=== PATIENT | female | born 1955 | race Caucasian/White ===

== ENCOUNTER 2016-06-18 15:26 | Outpatient (RCR) | payer BC ==
--- OUTSIDE RECORDS SUMMARY | 2016-05-22 15:28 | XMS REPORT | Continuity of Care Document ---
Author Author [facility] Organization [facility] Address Unknown Phone Unavailable Care Team Providers Care Road Engineer Name Role Phone Jack Liao PCP [phone] Source Comments Some departments are not documenting in the electronic medical record. If you do not see the information that you expected, contact Release of Information in the Health Information Management department at [phone] for further assistance in locating additional records.[facility] Active Allergies and Adverse Reactions Allergen Noted Date Severity Reactions Comments Grass Pollen 07/15/2012 UNKNOWN Molds Extract 07/20/2012 UNKNOWN Penicillins 07/15/2012 RASH Pollen 07/15/2012 UNKNOWN Sucralfate 07/15/2012 HIVES Sulfa (Sulfonamide 07/15/2012 UNKNOWN Antibiotics) Current Medications Prescription Sig. Disp. Refills Start End Date Status Date omeprazole DR(+) Take 20 mg by mouth Active (PRILOSEC) 20 mg capsule daily. cholecalciferol (Vitamin Take 1,000 Units by mouth Active D3) (VITAMIN D-3) 1,000 daily. units tablet topiramate (TOPAMAX) 50 Take 50 mg by mouth twice Active mg tablet daily. sertraline (ZOLOFT) 100 Take 100 mg by mouth Active mg tablet daily. fexofenadine(+) (SEAN) Take 180 mg by mouth Active 180 mg tablet daily. spironolactone Take 25 mg by mouth Active (ALDACTONE) 25 mg tablet daily. cyanocobalamin (VITAMIN Take 1,000 mcg by mouth Active B-12) 1,000 mcg tablet daily. fluticasone (FLONASE) 50 Apply 2 Sprays to each Active mcg/actuation nasal spray nostril as directed daily. Calcium Carbonate-Vit Take 1 Tab by mouth Active D3-Min (CALCIUM-VITAMIN daily. D) 600 mg calcium- 400 unit Tab amitriptyline (ELAVIL) 10 Take 10 mg by mouth at Active mg tablet bedtime daily. budesonide/formoterol Inhale 2 Puffs by mouth 3 Inhaler 1 03/17/20 Active (SYMBICORT) 160/4.5 mcg twice daily. 13 HFAA inhalation VENTOLIN HFA 90 INHALE 2 PUFFS BY MOUTH 18 g 2 11/29/19 Active mcg/actuation inhaler EVERY 6 HOURS NEEDED 14 FOR WHEEZING montelukast (SINGULAIR) TAKE ONE TABLET BY MOUTH 30 Tab 3 03/26/20 Active 10 mg tablet EVERY NIGHT AT BEDTIME 14 Active Problems Not on file Immunizations Name Dates Previously Given Next Due Flu Vaccine Trivalent=>3 05/10/2013 Yo (Preservative Free) Social History Tobacco Use Types Packs/Day Years Used Date Never Smoker Smokeless Tobacco: Never Used Alcohol Use Drinks/Week oz/Week Comments Yes a few times a year Last Filed Vital Signs Vital Sign Reading Time Taken Blood Pressure 121/79 05/10/2013 10:05 AM CDT Pulse 83 05/10/2013 10:05 AM CDT Temperature 36.7 C (98.1 F) 05/10/2013 10:05 AM CDT Respiratory Rate 24 05/10/2013 10:05 AM CDT Height 1.575 m (5' 2") 05/10/2013 10:05 AM CDT Weight 77.565 kg (171 lb) 05/10/2013 10:05 AM CDT Body Mass Index 31.27 05/10/2013 10:05 AM CDT Oxygen Saturation 98% 05/10/2013 10:05 AM CDT Plan of Care Health Maintenance Due Date Last Done Comments Physical (Comprehensive) 1960 Exam Pertussis Vaccine 1964 Tetanus Vaccine 1970 Cervical Cancer Screening 1974 Breast Cancer Screening 1993 Colorectal Cancer 10/26/2003 Screening Shingles Vaccine 2013 Influenza Vaccine 03/12/2016 05/10/2013 Results from Last 3 Months Not on file
[~2016-06-18 15:26] MED LIST: BSP10T PO; BSP5T PO; BUDE6HFA IH; CIPR-17 PO; FEXO180T PO; FEXO30TA17 PO; FLT05NA16 NSEACH; HYDR-3583 PO; IPR14IN INH; LEVO750T6 PO; METR500T PO; MNTL10T PO; SPRN25T PO; SRTR100T PO; TPR25T PO
== END 2016-08-13 14:55 | disposition home or self-care (01) ==
PROVIDERS: ATTEND Orthopaedic Surgery Orthopaedic Surgery of the Spine
DX: M48.06 Spinal stenosis, lumbar region (principal)

== ENCOUNTER → 2016-12-21 | Outpatient (CLI) | payer BC ==
--- NOTE | 2016-12-21 11:27 | Diagnostic Imaging Report ---
PROCEDURE: US Thyroid. TECHNIQUE: Multiple real-time grayscale images were obtained of the thyroid in various projections. INDICATION: Disorder of thyroid gland, family history of thyroid cancer. COMPARISON: None. DISCUSSION: The thyroid gland is normal in echotexture and size. The right thyroid measures 4.1 x 1.3 x 1.5 cm. The left thyroid measures 3.9 x 1.6 x 1.6 cm. 4 mm cyst within the left thyroid gland is benign. No solid nodule identified. No abnormal adjacent lymph nodes identified. IMPRESSION: 1. Unremarkable sonographic appearance of the thyroid gland. Dictated by: Dictated on workstation # [id number]
== END | disposition home or self-care (01) ==
LOC: RAD 10:45
PROVIDERS: ATTEND Family Medicine
DX: E07.9 Disorder of thyroid, unspecified (principal)
CPT/HCPCS: 76536

== ENCOUNTER → 2017-09-09 | Outpatient (CLI) | payer BC ==
[~2017-09-09] MED LIST changes: +CATHETER FLUSH 10 ML SYR IV PRN; +IOHEXOL 350 MG/ML 100 ML (OMNIPAQUE 350) VIAL IV ONE; +NS 250 ML (IVPB) BAG IV ONE; +RECEIVED CONTRAST (Hold Metformin) IV SCH
[2017-09-09 16:30] LABS: BUN/CREATININE RATIO 21; CREATININE SERUM 0.92 MG/DL (0.60-1.30); GFR ESTIMATED > 60
--- NOTE | 2017-09-09 17:25 | Diagnostic Imaging Report ---
PROCEDURE: CT abdomen and pelvis with contrast. TECHNIQUE: Multiple contiguous axial images were obtained through the abdomen and pelvis after administration of intravenous contrast. INDICATION: Lower abdominal pain and pressure for one week with nausea and vomiting; history of spinal surgery, partial hysterectomy, cholecystectomy, and appendectomy. CONTRAST: 100 mL of Omnipaque 350 was administered. COMPARISON STUDY: CT of the abdomen and pelvis from 2012. FINDINGS: There is a minimal hiatal hernia. The lung bases are clear. There has been slight increase of a left splenic cyst. This appears benign. The gallbladder is absent. No ductal dilatation is seen. The liver is normal. The pancreas, adrenal glands, and kidneys are normal. The appendix and uterus are absent. The urinary bladder is normal. The bowel loops appear normal. No hernias are present. Interval postoperative changes are present in the spine. No osseous metastases are present. IMPRESSION: There are no acute findings. Dictated by: Dictated on workstation # [id number]
== END ==
LOC: RAD 15:58
PROVIDERS: ATTEND Nurse Practitioner Family
DX: R10.30 Lower abdominal pain, unspecified (principal); R11.2 Nausea with vomiting, unspecified; Z90.49 Acquired absence of other specified parts of digestive tract; Z90.710 Acquired absence of both cervix and uterus; Z98.890 Other specified postprocedural states
CPT/HCPCS: 36415; 74177; 82565; 84520

== ENCOUNTER → 2018-08-17 | Outpatient (CLI) | payer BC ==
[~2018-08-17] MED LIST changes: -CATHETER FLUSH 10 ML SYR IV PRN; -IOHEXOL 350 MG/ML 100 ML (OMNIPAQUE 350) VIAL IV ONE; -NS 250 ML (IVPB) BAG IV ONE; -RECEIVED CONTRAST (Hold Metformin) IV SCH
--- NOTE | 2018-08-17 16:50 | Diagnostic Imaging Report ---
INDICATION: Right-sided pain. TIME OF EXAM: 04:34 p.m. Correlation is made with prior chest radiograph from 06/19/2013. FINDINGS: The heart size is stable. Calcified nodule in right middle lobe is again noted. Lungs are clear. No infiltrates are seen. No effusion or pneumothorax is identified. Postsurgical changes in the lower cervical spine are seen. Visualized ribs appear to be intact. IMPRESSION: Stable chest. No acute feature is detected. Dictated by: Dictated on workstation # [id number]
== END ==
LOC: RAD 16:23
PROVIDERS: ATTEND Nurse Practitioner Family
DX: R06.00 Dyspnea, unspecified (principal); R07.89 Other chest pain
CPT/HCPCS: 71046

== ENCOUNTER → 2019-09-08 | Outpatient (CLI) | payer BC ==
--- NOTE | 2019-09-08 16:10 | Diagnostic Imaging Report ---
INDICATION: Chronic cough. TIME OF EXAM: 03:53 p.m. Correlation is made with prior chest from 08/17/2018. FINDINGS: Heart size is stable. Calcified granuloma in the right base is unchanged. No infiltrates are seen. There is no effusion or pneumothorax. Postop changes in the lower cervical spine are noted. IMPRESSION: Stable chest. No acute feature is detected. Dictated on workstation # [id number]
--- NOTE | 2019-09-08 16:34 | Diagnostic Imaging Report ---
CLINICAL INDICATION: Patient with sinusitis and cough. Patient has past surgical history of deviated septum. EXAM: Axial CT scan of the maxillofacial structures without IV contrast. Coronal and sagittal reformations were performed. Auto Exposure Controls were utilized during the CT exam to meet ALARA standards for radiation dose reduction. COMPARISON: CT scan of the sinuses without contrast dated 10/11/2009. FINDINGS: PARANASAL SINUSES: FRONTAL: Unremarkable. ETHMOID: There is mild ethmoid sinus mucosal thickening. MAXILLARY: Unremarkable. SPHENOID: Unremarkable. OTHER PARANASAL SINUS FINDINGS: There are postop changes to the paranasal sinuses with bilateral medial maxillary antrostomies, bilateral middle turbinectomies, and bilateral ethmoidectomies. NASAL SEPTUM: Stable mild leftward nasal septal deviation. VISUALIZED TEMPORAL BONE STRUCTURES: Unremarkable. BONY STRUCTURES: Unremarkable. EXTRACRANIAL SOFT TISSUE/ ORBITS: Unremarkable. IMPRESSION: 1: There is mild ethmoid sinus mucosal thickening which has not significantly changed. 2: Stable postop changes to the paranasal sinuses. 3: Stable leftward nasal septal deviation. Dictated by: Dictated on workstation # [id number]
== END ==
LOC: RAD 15:20
PROVIDERS: ATTEND Otolaryngology Otolaryngology/Facial Plastic Surgery
DX: J32.9 Chronic sinusitis, unspecified (principal); R05 Cough; J34.2 Deviated nasal septum
CPT/HCPCS: 70486; 71046

== ENCOUNTER → 2021-02-10 | Outpatient (CLI) | payer MEDICARE, OTHER ==
--- NOTE | 2021-02-10 16:39 | Diagnostic Imaging Report ---
INDICATION: Fall with left wrist pain. TIME OF EXAM: 2:54 PM Wrist is encased in a plaster splint obscuring bone detail. There is a fracture of the distal radius with intra-articular extension to the radiocarpal joint. The ulna appears to be intact. Carpus and metacarpals are intact IMPRESSION: Intra-articular distal radius fracture. Dictated by: Dictated on workstation # [id number]
--- NOTE | 2021-02-10 16:40 | Diagnostic Imaging Report ---
INDICATION: Fall with right elbow pain. TIME OF EXAM: 2:59 PM Three views of the right elbow were obtained. There appears to be a fracture of the neck of the radius. There is a large elbow joint effusion with prominent anterior fat-pad. No other fractures are seen. IMPRESSION: Neck of radius fracture. Dictated by: Dictated on workstation # [id number]
== END ==
LOC: RAD FS 14:39
PROVIDERS: ATTEND Nurse Practitioner
DX: S52.131A Displaced fracture of neck of right radius, initial encounter for closed fracture (principal); S50.01XA Contusion of right elbow, initial encounter; W19.XXXA Unspecified fall, initial encounter
CPT/HCPCS: 73080; 73110

== ENCOUNTER 2021-04-29 08:13 | Outpatient (RCR) | payer MEDICARE, OTHER | END 2021-04-29 17:00 | disposition home or self-care (01) | PROVIDERS: ATTEND Orthopaedic Surgery | DX: S52.542D Smith's fracture of left radius, subsequent encounter for closed fracture with routine healing (principal); S52.134D Nondisplaced fracture of neck of right radius, subsequent encounter for closed fracture with routine healing; W19.XXXD Unspecified fall, subsequent encounter ==

== ENCOUNTER → 2021-10-10 | Outpatient (CLI) | payer MEDICARE, OTHER ==
--- NOTE | 2021-10-10 14:43 | Diagnostic Imaging Report ---
PROCEDURE: MR imaging of the brain without contrast. TECHNIQUE: Multiplanar, multisequence MR imaging of the brain was performed without contrast. INDICATION: Headaches and dizziness as well as blurred vision. COMPARISON: No prior studies are available for comparison. The ventricles and sulci are within normal limits. No sulcal effacement or midline shift is identified. There is no diffusion restriction. Normal expected flow-voids within the carotid siphons are seen. No acute intra-axial or extra-axial hemorrhage is detected. Corpus callosum is unremarkable. The sella and parasellar structures are unremarkable. IMPRESSION: Unremarkable noncontrast MRI of the brain. Dictated by: Dictated on workstation # [id number]
== END ==
LOC: RAD 12:15
PROVIDERS: ATTEND Family Medicine
DX: G43.909 Migraine, unspecified, not intractable, without status migrainosus (principal)
CPT/HCPCS: 70551

== ENCOUNTER 2022-04-06 19:41 | Observation (INO) | payer MEDICARE, OTHER ==
[~2022-04-06] VITALS: Ht 158.8 cm; Wt 80.3 kg
[2022-04-06] MEDS ORDERED: LEVO50TA6 (19:55)
[2022-04-06] MEDS ORDERED: SERT-414 (19:55)
[2022-04-06] MEDS ORDERED: BUSP15TA60 (19:55)
[2022-04-06] MEDS ORDERED: PROP40TA5 (19:55)
[2022-04-06] MEDS ORDERED: ESTR42.511 (19:55)
[2022-04-06] MEDS ORDERED: SPIR25TA5 (19:55)
[2022-04-06] MEDS ORDERED: ROSU5TAB13 (19:55)
[2022-04-06] MEDS ORDERED: AMIT25TA9 (19:55)
[2022-04-06] MEDS ORDERED: CLOB15CR2 (19:55)
[2022-04-06 20:08] LABS: BASOPHILS # (AUTO) 0.1 10^3/uL (0.0-0.1); BASOPHILS % (AUTO) 1 % (0-10); EOSINOPHILS # (AUTO) 0.1 10^3/uL (0.0-0.3); EOSINOPHILS % (AUTO) 1 % (0-10); HEMATOCRIT 41 % (35-52); HEMOGLOBIN 13.9 g/dL (11.5-16.0); LYMPHOCYTES # (AUTO) 1.9 10^3/uL (1.0-4.0); LYMPHOCYTES % (AUTO) 27 % (12-44); MEAN CORPUSCULAR HEMOGLOBIN 31 pg (25-34); MEAN CORPUSCULAR HGB CONC 34 g/dL (32-36); MEAN CORPUSCULAR VOLUME 92 fL (80-99); MEAN PLATELET VOLUME 9.7 fL (9.0-12.2); MONOCYTES # (AUTO) 0.6 10^3/uL (0.0-1.0); MONOCYTES % (AUTO) 8 % (0-12); NEUTROPHILS # (AUTO) 4.5 10^3/uL (1.8-7.8); NEUTROPHILS % (AUTO) 63 % (42-75); PLATELET COUNT 175 10^3/uL (130-400); WHITE BLOOD COUNT 7.2 10^3/uL (4.3-11.0)
--- NOTE | 2022-04-06 20:17 | ED Neurological Problem ---
General Chief Complaint: Neuro-Stroke Like Symptoms Stated Complaint: CONFUSION Nursing Triage Note: brought in by with increased confusion/forgetfulness. last known well time 1800. pt denies complaints at this time. Source: patient, family Exam Limitations: no limitations History of Present Illness Date Seen by Provider: Apr 06, 2022 Time Seen by Provider: 20:14 Initial Comments To ER by [employer] by her with reports of confusion and forgetfulness. This evening she was unable to recall what she had for lunch. He states that at lunch she had some sort of ice cream cone that she thought was unusually good and she brought it inside for him to try as well and she was unable to remember that. She was also unable to remember her 2 children's birthdays. She was last known to be well at 6 PM when she got off work. At 1919 when her saw her he noticed that she also could not figure out how to work the remote and she is normally the one that has to tell him how to work the remote. She did have an MRI of the brain about 6 months ago here due to some memory troubles. However on a normal daily basis she does not have any issues. She denies any troubles getting words out, she denies any numbness or tingling of any of her extremities. Timing/Duration: 1-3 hours Severity: moderate Associated Symptoms: confusion Allergies and Home Medications Allergies Coded Allergies: Sulfa (Sulfonamide Antibiotics) (Unverified Allergy, Unknown, 11/23/16) amoxicillin (Unverified Allergy, Unknown, 11/23/16) sucralfate (Unverified Allergy, Unknown, 11/23/16) Uncoded Allergies: SULFA (Allergy, Unknown, 07/31/10) Patient Home Medication List Home Medication List Reviewed: Yes Amitriptyline HCl (Amitriptyline HCl) 25 Mg Tablet, (Reported) Entered as Reported by: JORGE LUIS LEES on 04/06/221954 Last Action: New Order Budesonide/Formoterol Fumarate (Symbicort Inhaler 160/4.5 Mcg) 10.2 Gm Hfa.aer.ad, 10.2 GM IH, (Reported) Entered as Reported by: SHAE NEFF on 03/12/101538 Buspirone HCl (Buspirone HCl) 15 Mg Tablet, (Reported) Entered as Reported by: JORGE LUIS LEES on 04/06/221954 Last Action: New Order Clobetasol Propionate (Clobetasol Propionate) 0.05 % Cream..g., (Reported) Entered as Reported by: JORGE LUIS LEES on 04/06/221954 Last Action: New Order Estradiol (Estradiol) 0.01 % Cream.appl, (Reported) Entered as Reported by: JORGE LUIS LEES on 04/06/221954 Last Action: New Order Fexofenadine Hcl (Monae) 180 Mg Tablet, 1 TAB PO DAILY, (Reported) Entered as Reported by: SHAE NEFF on 03/12/10 1537 Fluticasone Propionate (Flonase 0.05% Nasal Randolph) 16 Gm Randolph, 2 SPRAYS NSEACH DAILY, (Reported) Entered as Reported by: ABA MIRAMONTES on 03/12/10 1036 Levothyroxine Sodium (Levothyroxine Sodium) 50 Mcg Tablet, (Reported) Entered as Reported by: JORGE LUIS LEES on 04/06/221954 Last Action: New Order Montelukast Sodium (Singulair 10 Mg) 10 Mg Tablet, 10 MG PO DAILY, (Reported) Entered as Reported by: ABA PYLE on 05/13/13 1325 Propranolol HCl (Propranolol HCl) 40 Mg Tablet, (Reported) Entered as Reported by: JORGE LUIS LEES on 04/06/221954 Last Action: New Order Rosuvastatin Calcium (Rosuvastatin Calcium) 5 Mg Tablet, (Reported) Entered as Reported by: JORGE LUIS LEES on 04/06/221954 Last Action: New Order Sertraline HCl (Sertraline HCl) 100 Mg Tablet, (Reported) Entered as Reported by: JORGE LUIS LEES on 04/06/221954 Last Action: New Order Sertraline Hcl (Zoloft) 100 Mg Tab, 200 MG PO HS, (Reported) Entered as Reported by: ABA MIRAMONTES on 03/12/10 1036 Spironolactone (Aldactone) 25 Mg Tab, 25 MG PO DAILY, (Reported) Entered as Reported by: ABA MIRAMONTES on 03/12/10 1036 Spironolactone (Spironolactone) 25 Mg Tablet, (Reported) Entered as Reported by: JORGE LUIS LEES on 04/06/221954 Last Action: New Order Topiramate (Topamax) 25 Mg Tablet, 25 MG PO DAILY, (Reported) Entered as Reported by: ABA PYLE on 05/13/13 7470 Review of Systems Review of Systems Constitutional: see HPI Eyes: No Symptoms Reported Ears, Nose, Mouth, Throat: no symptoms reported Respiratory: no symptoms reported Cardiovascular: no symptoms reported Genitourinary: no symptoms reported Musculoskeletal: no symptoms reported Skin: no symptoms reported Psychiatric/Neurological: See HPI, Cognitive Dysfunction Endocrine: No Symptoms Reported Hematologic/Lymphatic: No Symptoms Reported Past Wfcwinm-Tvtdmk-Jnzuhr Hx Patient Social History Tobacco Use?: No Substance use?: No Alcohol Use?: No Pt feels they are or have been: No Immunizations Up To Date Tetanus Booster (TDap): More than 5yrs First/Initial COVID19 Vaccinat: x4 Past Medical History Surgery/Hospitalization HX: ortho, asthma, htn, headaches, depression, hypothryoidism, asthma Asthma Reproductive Disorders: No Sexually Transmitted Disease: No Physical Exam Vital Signs Vital Signs - First Documented 04/06/22 19:47 Temp 36.8 Pulse 61 Resp 16 B/P (MAP) 164/90 (114) Pulse Ox 94 O2 Delivery Room Air Capillary Refill : Less Than 3 Seconds Height, Weight, BMI Height: 5'2.00" Weight: 165lbs. 0.0oz. 74.915042qy; 30.00 BMI Method:Stated General Appearance: WD/WN, no apparent distress HEENT: PERRL/EOMI, normal ENT inspection, TMs normal, other (Her right pupil is about 4 mm left about 3 mm. states this has happened once before and it was followed by a migraine. She denies any headaches today or headache currently. She) Neck: non-tender, full range of motion Respiratory: no respiratory distress, no accessory muscle use Cardiovascular: regular rate, rhythm, no murmur Gastrointestinal: normal bowel sounds, non tender Extremities: normal range of motion, non-tender Neurologic/Psychiatric: alert, normal mood/affect, oriented x 3 Crainal Nerves: normal hearing, normal speech, other (Right pupil ever so slightly larger than left, both reactive. R4mm L3mm) Motor/Sensory: no motor deficit, no sensory deficit Skin: normal color, warm/dry Stroke Onset of Symptoms Date of Onset of Symptoms: Apr 06, 2022 Time of Symptom Onset: 19:20 Onset of Symptoms: Yes NIH Stroke Scale Assessment Level of Consciousness: 0=Alert (0), Level of Consciousness-Questions: 0=Answers both month/age (0), LOC Commands: 0=Performs both tasks (0), Visual [place]: 0=No visual loss (0), Facial Movement (Facial Paresis): 0=Normal symmetrical mnt (0), Motor Function-Arms Right: 0=No drift (0), Motor Function-Arms Left: 0=No drift (0), Motor Function-Legs Right: 0=No drift (0), Motor Function-Legs Left: 0=No drift (0), Limb Ataxia: 0=Absent (0), Sensory: 0=Normal:no loss (0), Best Language: 0=No aphasia (0), Dysarthria: 0=Normal (0), Extinction & Inattention: 0=No abnormality (0), Total: 0 Stroke Thrombolytic Exclusion Age 18 or Over: Yes Acute intenal hemorrhage: No History of CVA: No Uncontrolled Coagulation Defec: No Intracranial Hemorrhage: No Severe Hypertension: No GI or Bleed: No Subarachnoid Hemorrhage: No Intracranial Neoplasm/Aneurysm: No Oral Anticoagulants: No Surgery or Trauma: No Puncture of Non-Compressible V: No Recent CPR: No Diabetic Hemorrhagic Retinopat: No Organ Biopsy: No Recent Obstetric Delivery: No Glucose: No Significant Hepatic Dysfunctio: No NIH Stoke Scale >22: No Bacterial Endocarditis: No Pericarditis: No Improving Symptoms: Yes Platelets: No TPA Contraindication: No Progress/Results/Core Measures Results/Orders Lab Results Laboratory Tests Test 04/06/22 20:00 04/06/22 20:05 04/06/22 21:20 Range/Units Glucometer 83 70-110 MG/DL White Blood Count 7.2 4.3-11.0 10^3/uL Red Blood Count 4.49 3.80-5.11 10^6/uL Hemoglobin 13.9 11.5-16.0 g/dL Hematocrit 41 35-52 % Mean Corpuscular Volume 92 80-99 fL Mean Corpuscular Hemoglobin 31 25-34 pg Mean Corpuscular Hemoglobin Concent 34 32-36 g/dL Red Cell Distribution Width 13.2 10.0-14.5 % Platelet Count 175 130-400 10^3/uL Mean Platelet Volume 9.7 9.0-12.2 fL Immature Granulocyte % (Auto) 0 % Neutrophils (%) (Auto) 63 42-75 % Lymphocytes (%) (Auto) 27 12-44 % Monocytes (%) (Auto) 8 0-12 % Eosinophils (%) (Auto) 1 0-10 % Basophils (%) (Auto) 1 0-10 % Neutrophils # (Auto) 4.5 1.8-7.8 10^3/uL Lymphocytes # (Auto) 1.9 1.0-4.0 10^3/uL Monocytes # (Auto) 0.6 0.0-1.0 10^3/uL Eosinophils # (Auto) 0.1 0.0-0.3 10^3/uL Basophils # (Auto) 0.1 0.0-0.1 10^3/uL Immature Granulocyte # (Auto) 0.0 0.0-0.1 10^3/uL Prothrombin Time 12.6 12.2-14.7 SEC INR Comment 0.9 0.8-1.4 Activated Partial Thromboplast Time 26 24-35 SEC D-Dimer 0.42 0.00-0.49 UG/ML Sodium Level 141 135-145 MMOL/L Potassium Level 4.0 3.6-5.0 MMOL/L Chloride Level 108 H 98-107 MMOL/L Carbon Dioxide Level 20 L 21-32 MMOL/L Anion Gap 13 5-14 MMOL/L Blood Urea Nitrogen 23 H 7-18 MG/DL Creatinine 0.96 0.60-1.30 MG/DL Estimat Glomerular Filtration Rate 64 BUN/Creatinine Ratio 24 Glucose Level 81 70-105 MG/DL Calcium Level 9.4 8.5-10.1 MG/DL Corrected Calcium 9.1 8.5-10.1 MG/DL Total Bilirubin 0.4 0.1-1.0 MG/DL Aspartate Amino Transf (AST/SGOT) 23 5-34 U/L Alanine Aminotransferase (ALT/SGPT) 21 0-55 U/L Alkaline Phosphatase 80 40-136 U/L Troponin I < 0.028 <0.028 NG/ML Total Protein 7.2 6.4-8.2 GM/DL Albumin 4.4 3.2-4.5 GM/DL My Orders Orders - [facility] [employer] Cbc With Automated Diff (04/06/22 20:00) Protime With Inr (04/06/22 20:00) Partial Thromboplastin Time (04/06/22 20:00) Comprehensive Metabolic Panel (04/06/22 20:00) Fibrin Degradation Products (04/06/22 20:00) Troponin I Kobe (04/06/22 20:00) Ua Culture If Indicated (04/06/22 20:00) Chest 1 View, Ap/Pa Only (04/06/22 20:00) Ekg Tracing (04/06/22 20:00) Nothing By Mouth (04/06/22 Dinner) Accucheck Stat ONCE (04/06/22 20:00) Ed Iv/Invasive Line Start (04/06/22 20:00) Ed Iv/Invasive Line Start (04/06/22 20:00) Vital Signs Stroke Patient Q15M (04/06/22 20:00) O2 (04/06/22 20:00) Intake & Output 06,14,22 (04/06/22 20:00) Monitor-Rhythm Ecg Trace Only (04/06/22 20:00) Dysphagia Screening Tool Q10MX1 (04/06/22 20:00) Post Thrombolytic Adminstratio (04/06/22 20:00) Lipid Panel (04/07/22 06:00) Ct Angio Head/Neck (04/06/22 20:17) Iohexol Injection (Omnipaque 350 Mg/Ml 1 (04/06/22 20:30) Sodium Chloride Flush (Catheter Flush Sy (04/06/22 20:30) Ns (Ivpb) (Sodium Chloride 0.9% Ivpb Bag (04/06/22 20:30) Aspirin Chewable Tablet (Baby Aspirin Ch (04/06/22 21:45) Medications Given in ED Current Medications Medications Dose Ordered Sig/Pura Route Start Time Stop Time Status Last Admin Dose Admin Iohexol 100 ml ONCE ONCE IV 04/06/22 20:30 04/06/22 20:31 DC 04/06/22 20:29 75 ML Sodium Chloride 10 ml NEEDED PRN IV 04/06/22 20:30 04/06/22 20:29 10 ML Sodium Chloride 100 ml ONCE ONCE IV 04/06/22 20:30 04/06/22 20:31 DC 04/06/22 20:29 80 ML Vital Signs/I&O 04/06/22 19:47 Temp 36.8 Pulse 61 Resp 16 B/P (MAP) 164/90 (114) Pulse Ox 94 O2 Delivery Room Air Blood Pressure Mean: 114 FSBG Bedside Testing Finger Stick Blood Glucose: 83 Departure Communication (Admissions) 2136-she feels back to normal still blood pressure 150/90. She has subsequently developed a right frontal headache initially that is now all across the front of her forehead but she states it is very dull. Symptoms related to migraine variant versus TIA. She does not take any aspirin or Plavix. Her brother and father both had devastating CVAs with residual effects. Discussed with Dr. Tran will admit, echocardiogram in the morning, telemetry overnight, start on baby aspirin. Family Conversation NAME: ITZ NARVAEZ [employer] REC#: [id number] PT STATUS: REG ER : 1955 PHYSICIAN: RALPH SANTOS APRN ADMIT DATE: 04/06/22/ER Draft Date of Exam:04/06/22 CHEST 1 VIEW, AP/PA ONLY HISTORY: Altered mental status COMPARISON: 09/08/2019 TECHNIQUE: Frontal view of the chest FINDINGS: The lung volumes are normal. No consolidation is seen. There is a calcified granuloma in the right lung base. There is no pleural effusion or pneumothorax. The cardiac silhouette is normal in size. IMPRESSION: 1. No acute pulmonary abnormality. Dictated on workstation # [id number] Dict: 04/06/222042 Trans: 04/06/222048 [facility] [id number] Interpreted by: SOLANGE PALENCIA MD Electronically signed by: NAME: ITZ NARVAEZ [employer] REC#: [id number] PT STATUS: REG ER : 1955 PHYSICIAN: RALPH SANTOS APRN ADMIT DATE: 04/06/22/ER Draft Date of Exam:04/06/22 CT ANGIO HEAD/NECK PROCEDURE: CT angiography of the head and CT angiography of the neck with and without contrast. TECHNIQUE: Contiguous noncontrast images were obtained from the skull base through the vertex. After intravenous contrast administration, helical CT angiography of the neck was performed. Source data was reformatted into 3D MIP projections. Delayed post contrast acquisition was also obtained. Auto Exposure Controls were utilized during the CT exam to meet ALARA standards for radiation dose reduction. INDICATION: Altered mental status, forgetful. COMPARISON: MRI from 10/10/2021 FINDINGS: Precontrast images demonstrate no acute intracranial hemorrhage or CT evidence of acute territorial ischemia. There is no midline shift or mass effect. The ventricles and cortical sulci appear normal. Postcontrast images demonstrate no enhancing lesions. The bilateral common and internal carotid arteries appear widely patent. There is tortuosity. The right vertebral artery appears normal. The left vertebral artery is diminutive proximally, but appears to be patent. The left V4 segment appears diminutive. The anterior communicating artery is seen. The anterior cerebral arteries appear normal. The middle cerebral arteries appear normal. The posterior communicating arteries are robust. The posterior cerebral arteries appear patent although the left P1 segment is diminutive. The basilar artery is diminutive. The superior cerebellar arteries are patent. The distal basilar artery is particularly diminutive. There is anterior fusion in the cervical spine. No acute abnormality is seen in the neck. IMPRESSION: 1. No acute abnormality is seen in the arteries of the head and neck. 2. Variant anatomy with diminutive left vertebral and basilar arteries. Dictated on workstation # [id number] Dict: 04/06/222046 Trans: 04/06/222057 [facility] [id number] Interpreted by: SOLANGE PALENCIA MD Electronically signed by: Impression Primary Impression: TIA (transient ischemic attack) Disposition: ADMITTED INPATIENT Condition: Stable Departure-Patient Inst. Referrals: JOSE ANGEL TRAN DO (PCP/Family) Primary Care Physician RALPH SANTOS APRN Apr 06, 2022 20:17
[2022-04-06 20:23] LABS: FIBRIN DEGRADATION PRODUCTS 0.42 UG/ML (0.00-0.49); INR 0.9 (0.8-1.4); PROTHROMBIN TIME PATIENT 12.6 SEC (12.2-14.7)
[2022-04-06 20:28] LABS: ALANINE AMINOTRANSFERASE 21 U/L (0-55); ALBUMIN 4.4 GM/DL (3.2-4.5); ALKALINE PHOSPHATASE 80 U/L (40-136); BILIRUBIN,TOTAL 0.4 MG/DL (0.1-1.0); BUN/CREATININE RATIO 24; CALCIUM 9.4 MG/DL (8.5-10.1); CARBON DIOXIDE 20 MMOL/L (21-32); CHLORIDE 108 MMOL/L (98-107); CREATININE SERUM 0.96 MG/DL (0.60-1.30); GFR ESTIMATED 64; GLUCOSE 81 MG/DL (70-105); SODIUM 141 MMOL/L (135-145); TOTAL PROTEIN 7.2 GM/DL (6.4-8.2)
[2022-04-06] MEDS ORDERED: CATHETER FLUSH 10 ML SYR IV PRN (20:30)
[2022-04-06] MEDS ORDERED: NS 100 ML (IVPB) BAG IV ONE (20:30)
[2022-04-06] MEDS ORDERED: IOHEXOL 350 MG/ML 100 ML (OMNIPAQUE 350) VIAL IV ONE (20:30)
--- NOTE | 2022-04-06 20:49 | Diagnostic Imaging Report ---
HISTORY: Altered mental status COMPARISON: 09/08/2019 TECHNIQUE: Frontal view of the chest FINDINGS: The lung volumes are normal. No consolidation is seen. There is a calcified granuloma in the right lung base. There is no pleural effusion or pneumothorax. The cardiac silhouette is normal in size. IMPRESSION: 1. No acute pulmonary abnormality. Dictated by: Dictated on workstation # [id number]
--- NOTE | 2022-04-06 20:58 | Diagnostic Imaging Report ---
PROCEDURE: CT angiography of the head and CT angiography of the neck with and without contrast. TECHNIQUE: Contiguous noncontrast images were obtained from the skull base through the vertex. After intravenous contrast administration, helical CT angiography of the neck was performed. Source data was reformatted into 3D MIP projections. Delayed post contrast acquisition was also obtained. Auto Exposure Controls were utilized during the CT exam to meet ALARA standards for radiation dose reduction. INDICATION: Altered mental status, forgetful. COMPARISON: MRI from 10/10/2021 FINDINGS: Precontrast images demonstrate no acute intracranial hemorrhage or CT evidence of acute territorial ischemia. There is no midline shift or mass effect. The ventricles and cortical sulci appear normal. Postcontrast images demonstrate no enhancing lesions. The bilateral common and internal carotid arteries appear widely patent. There is tortuosity. The right vertebral artery appears normal. The left vertebral artery is diminutive proximally, but appears to be patent. The left V4 segment appears diminutive. The anterior communicating artery is seen. The anterior cerebral arteries appear normal. The middle cerebral arteries appear normal. The posterior communicating arteries are robust. The posterior cerebral arteries appear patent although the left P1 segment is diminutive. The basilar artery is diminutive. The superior cerebellar arteries are patent. The distal basilar artery is particularly diminutive. There is anterior fusion in the cervical spine. No acute abnormality is seen in the neck. IMPRESSION: 1. No acute abnormality is seen in the arteries of the head and neck. 2. Variant anatomy with diminutive left vertebral and basilar arteries. Dictated by: Dictated on workstation # [id number]
[2022-04-06 21:25] LABS: BILIRUBIN,URINE NEGATIVE (NEGATIVE); CLARITY,URINE CLEAR; COLOR,URINE YELLOW; GLUCOSE, URINE (UA) NEGATIVE (NEGATIVE); KETONES,URINE NEGATIVE (NEGATIVE); LEUKOCYTE ESTERASE ,URINE NEGATIVE (NEGATIVE); NITRITE,URINE NEGATIVE (NEGATIVE); PROTEIN,URINE NEGATIVE (NEGATIVE)
[2022-04-06 21:41] LABS: BACTERIA,URINE TRACE /HPF; SQUAMOUS EPITHELIAL CELL,UR 0-2 /HPF
[2022-04-06] MEDS ORDERED: ASPIRIN 81 MG CHEW (CHILDREN'S ASA) PO ONE (21:45)
[2022-04-06 23:07] VITALS: BP 134/66
[2022-04-07 03:40] VITALS: BP 108/53
[2022-04-07 05:53] LABS: CHOLESTEROL 180 MG/DL (< 200); HDL CHOLESTEROL 61 MG/DL (40-60); TRIGLYCERIDES 117 MG/DL (<150); VLDL CHOLESTEROL 23 MG/DL (5-40)
[2022-04-07] MEDS: CATHETER FLUSH 10 ML SYR IV SCH ×2 (05:58→14:27)
[2022-04-07 07:31] VITALS: BP 122/72
[2022-04-07] MEDS ORDERED: ASPIRIN E.C. 81 MG (ECOTRIN) TAB PO SCH (09:00)
[2022-04-07 11:14] VITALS: BP 132/68
[2022-04-07] MEDS ORDERED: ASPI-1238 PO (12:53)
[2022-04-07] MEDS ORDERED: GALC120P SQ (12:53)
[2022-04-07] MEDS ORDERED: KETOROLAC 30 MG/ML VIAL IVP NR (13:00)
[2022-04-07] MEDS ORDERED: ONDANSETRON 4 MG/2 ML (SDV) Z0FRAN IVP NR (13:00)
[2022-04-07 15:06] VITALS: BP 132/68
--- NOTE | 2022-04-07 17:06 | Short Stay Summary ---
History of Present Illness History of Present Illness Reason for visit/HPI This is a 66 year old female with a history of hypertension and optic migraine who presented to the emergency room with confusion. Her confusion resolved after she arrived to the emergency room and she then developed a headache. Her NIH stroke scale was 0. A CT angiogram of head and neck was negative. Her blood pressure was mildly elevated. It was felt that she should be monitored overnight for neurochecks and echocardiogram for the morning. Working diagnosis was TIA vs neurological/complex migraine. Date of Admission Apr 06, 2022 at 21:35 Date of Discharge Apr 07, 2022 at 15:10 Time Seen by Provider: 12:35 Attending Physician Jose Angel Tran DO Admitting Physician Admitting Physician: Jose Angel Tran DO Attending Physician: Jose Angel Tran DO Consult Allergies and Home Medications Allergies Coded Allergies: Sulfa (Sulfonamide Antibiotics) (Unverified Allergy, Unknown, 11/23/16) amoxicillin (Unverified Allergy, Unknown, 11/23/16) sucralfate (Unverified Allergy, Unknown, 11/23/16) Uncoded Allergies: SULFA (Allergy, Unknown, 07/31/10) Patient Home Medication List Home Medication List Reviewed: Yes Aspirin (Aspirin EC) 81 Mg Tablet.dr, 81 MG PO DAILY Prescribed by: JOSE ANGEL TRAN on 04/07/22 1253 Budesonide/Formoterol Fumarate (Symbicort Inhaler 160/4.5 Mcg) 10.2 Gm Hfa.aer.ad, 10.2 GM IH, (Reported) Entered as Reported by: SHAE NEFF on 03/12/10 1539 Buspirone HCl (Buspirone HCl) 15 Mg Tablet, (Reported) Entered as Reported by: JORGE LUIS LEES on 04/06/221954 Last Action: New Order Clobetasol Propionate (Clobetasol Propionate) 0.05 % Cream..g., (Reported) Entered as Reported by: JORGE LUIS LEES on 04/06/221954 Last Action: New Order Estradiol (Estradiol) 0.01 % Cream.appl, (Reported) Entered as Reported by: JORGE LUIS LEES on 04/06/221954 Last Action: New Order Fexofenadine Hcl (Monae) 180 Mg Tablet, 1 TAB PO DAILY, (Reported) Entered as Reported by: SHAE NEFF on 03/12/10 1537 Fluticasone Propionate (Flonase 0.05% Nasal [place]) 16 Gm [place], 2 SPRAYS NSEACH DAILY, (Reported) Entered as Reported by: ABA MIRAMONTES on 03/12/10 1036 Galcanezumab-Gnlm (Emgality) 120 Mg/Ml Pen.injctr, 240 MG SQ ONCE Prescribed by: JOSE ANGEL TRAN on 04/07/22 1253 Levothyroxine Sodium (Levothyroxine Sodium) 50 Mcg Tablet, (Reported) Entered as Reported by: JORGE LUIS LEES on 04/06/221954 Last Action: New Order Montelukast Sodium (Singulair 10 Mg) 10 Mg Tablet, 10 MG PO DAILY, (Reported) Entered as Reported by: ABA PYLE on 05/13/13 132 Propranolol HCl (Propranolol HCl) 40 Mg Tablet, (Reported) Entered as Reported by: JORGE LUIS LEES on 04/06/221954 Last Action: New Order Rosuvastatin Calcium (Rosuvastatin Calcium) 5 Mg Tablet, (Reported) Entered as Reported by: JORGE LUIS LEES on 04/06/221954 Last Action: New Order Sertraline Hcl (Zoloft) 100 Mg Tab, 200 MG PO HS, (Reported) Entered as Reported by: ABA MIRAMONTES on 03/12/10 1036 Spironolactone (Aldactone) 25 Mg Tab, 25 MG PO DAILY, (Reported) Entered as Reported by: ABA MIRAMONTES on 03/12/10 1036 Discontinued Medications Amitriptyline HCl (Amitriptyline HCl) 25 Mg Tablet, (Reported) Entered as Reported by: JORGE LUIS LEES on 04/06/221954 Last Action: New Order Sertraline HCl (Sertraline HCl) 100 Mg Tablet, (Reported) Entered as Reported by: JORGE LUIS LEES on 04/06/221954 Last Action: New Order Spironolactone (Spironolactone) 25 Mg Tablet, (Reported) Discontinued Reason: Duplicate Order Entered as Reported by: JORGE LUIS LEES on 04/06/221954 Last Action: New Order Topiramate (Topamax) 25 Mg Tablet, 25 MG PO DAILY, (Reported) Entered as Reported by: ABA PYLE on 05/13/13 1325 Past Pvjujmy-Cvrvio-Juvaqx Hx Patient Social History Marrital Status: Employed/Student: retired Smoking Status: Never a Smoker Have you traveled recently?: Yes Where was recent travel?: [place] in February Alcohol Use?: Yes Pt feels they are or have been: No Immunizations Up To Date Tetanus Booster (TDap): More than 5yrs Date of Influenza Vaccine: Apr 11, 2013 Reproductive System Hx Reproductive Disorders: No Sexually Transmitted Disease: No Review of Systems Constitutional: weakness EENTM: No see HPI, No no symptoms reported, No ear discharge, No hearing loss, No ear pain, No blurred vision, No double vision, No eye pain, No tearing, No vision loss, No dental problems, No hoarseness, No mouth pain, No mouth swelling, No epistaxis, No nose congestion, No nose pain, No throat pain, No throat swelling, No other Respiratory: No no symptoms reported, No see HPI, No cough, No dyspnea on exertion, No hemoptysis, No orthopnea, No phlegm, No short of breath, No stridor, No wheezing, No other Cardiovascular: No no symptoms reported, No see HPI, No chest pain, No edema, No Hx of Intervention, No palpitations, No syncope, No vascular heart diseas, No other Gastrointestinal: No RUQ, No LUQ, No RLQ, No LLQ, No no symptoms reported, No see HPI, No abdominal pain, No constipation, No diarrhea, No dysphagia, No hematemesis, No heartburn, No jaundice, No loss of appetite, No melena, No nausea, No vomiting, No other Genitourinary: No no symptoms reported, No see HPI, No decreased output, No discharge, No dysuria, No frequency, No hematuria, No hesitancy, No inco ntinence, No nocturia, No pain, No other Musculoskeletal: No no symptoms reported, No see HPI, No back pain, No gout, No joint pain, No joint swelling, No muscle pain, No muscle stiffness, No muscle cramps, No muscle twitching, No muscle weakness, No neck pain, No other Skin: No no symptoms reported, No see HPI, No change in color, No change in hair/nails, No dryness, No hx of skin cancer, No lesions, No lumps, No pruritus, No rash, No other Psychiatric/Neurological: Headache, Other (acute confusion/memory loss) Physical Exam Vital Signs Vital Signs - First Documented 04/06/22 19:47 Temp 36.8 Pulse 61 Resp 16 B/P (MAP) 164/90 (114) Pulse Ox 94 O2 Delivery Room Air Capillary Refill : Less Than 3 Seconds Height, Weight, BMI Height: 5'2.00" Weight: 165lbs. 0.0oz. 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 Skin: Warm/Dry Lymphatic: No Adenopathy Comments Laboratory Tests 04/06/22 20:00: Glucometer 83 04/06/22 20:05: White Blood Count 7.2, Red Blood Count 4.49, Hemoglobin 13.9, Hematocrit 41, Mean Corpuscular Volume 92, Mean Corpuscular Hemoglobin 31, Mean Corpuscular Hemoglobin Concent 34, Red Cell Distribution Width 13.2, Platelet Count 175, Mean Platelet Volume 9.7, Immature Granulocyte % (Auto) 0, Neutrophils (%) (Auto) 63, Lymphocytes (%) (Auto) 27, Monocytes (%) (Auto) 8, Eosinophils (%) (Auto) 1, Basophils (%) (Auto) 1, Neutrophils # (Auto) 4.5, Lymphocytes # (Auto) 1.9, Monocytes # (Auto) 0.6, Eosinophils # (Auto) 0.1, Basophils # (Auto) 0.1, Immature Granulocyte # (Auto) 0.0, Prothrombin Time 12.6, INR Comment 0.9, Activated Partial Thromboplast Time 26, D-Dimer 0.42, Sodium Level 141, Potassium Level 4.0, Chloride Level 108H, Carbon Dioxide Level 20L, Anion Gap 13, Blood Urea Nitrogen 23H, Creatinine 0.96, Estimat Glomerular Filtration Rate 64, BUN/Creatinine Ratio 24, Glucose Level 81, Calcium Level 9.4, Corrected Calcium 9.1, Total Bilirubin 0.4, Aspartate Amino Transf (AST/SGOT) 23, Alanine Aminotransferase (ALT/SGPT) 21, Alkaline Phosphatase 80, Troponin I < 0.028, Total Protein 7.2, Albumin 4.4 04/06/22 21:20: Urine Color YELLOW, Urine Clarity CLEAR, Urine pH 5.0, Urine Specific [place] <=1.005, Urine Protein NEGATIVE, Urine Glucose (UA) NEGATIVE, Urine Ketones NEGATIVE, Urine Nitrite NEGATIVE, Urine Bilirubin NEGATIVE, Urine Urobilinogen 0.2, Urine Leukocyte Esterase NEGATIVE, Urine RBC (Auto) NEGATIVE, Urine RBC NONE, Urine WBC NONE, Urine Squamous Epithelial Cells 0-2, Urine Crystals NONE, Urine Bacteria TRACE, Urine Casts NONE, Urine Mucus NEGATIVE, Urine Culture Indicated NO 04/07/22 05:25: Triglycerides Level 117, Cholesterol Level 180, LDL Cholesterol Direct 102, VLDL Cholesterol 23, HDL Cholesterol 61H Clinical Quality Measures Stroke: Date of last known well: Apr 06, 2022 Time of last known well: 19:20 Short Stay Diagnosis Discharge Diagnosis-Short Stay Final Discharge Diagnosis: 1. Neurological/Complex Migraine--still with ongoing headache but confusion was resolved by the time she arrived at ER 2. Hypertension--stable 3. Depression/Anxiety--stable Conclusion Labs Laboratory Tests 04/06/22 20:00: Glucometer 83 04/06/22 20:05: White Blood Count 7.2, Red Blood Count 4.49, Hemoglobin 13.9, Hematocrit 41, Mean Corpuscular Volume 92, Mean Corpuscular Hemoglobin 31, Mean Corpuscular Hemoglobin Concent 34, Red Cell Distribution Width 13.2, Platelet Count 175, Mean Platelet Volume 9.7, Immature Granulocyte % (Auto) 0, Neutrophils (%) (Auto) 63, Lymphocytes (%) (Auto) 27, Monocytes (%) (Auto) 8, Eosinophils (%) (Auto) 1, Basophils (%) (Auto) 1, Neutrophils # (Auto) 4.5, Lymphocytes # (Auto) 1.9, Monocytes # (Auto) 0.6, Eosinophils # (Auto) 0.1, Basophils # (Auto) 0.1, Immature Granulocyte # (Auto) 0.0, Prothrombin Time 12.6, INR Comment 0.9, Activated Partial Thromboplast Time 26, D-Dimer 0.42, Sodium Level 141, Potassium Level 4.0, Chloride Level 108H, Carbon Dioxide Level 20L, Anion Gap 13, Blood Urea Nitrogen 23H, Creatinine 0.96, Estimat Glomerular Filtration Rate 64, BUN/Creatinine Ratio 24, Glucose Level 81, Calcium Level 9.4, Corrected Calcium 9.1, Total Bilirubin 0.4, Aspartate Amino Transf (AST/SGOT) 23, Alanine Aminotransferase (ALT/SGPT) 21, Alkaline Phosphatase 80, Troponin I < 0.028, Total Protein 7.2, Albumin 4.4 04/06/22 21:20: Urine Color YELLOW, Urine Clarity CLEAR, Urine pH 5.0, Urine Specific [place] <=1.005, Urine Protein NEGATIVE, Urine Glucose (UA) NEGATIVE, Urine Ketones NEGATIVE, Urine Nitrite NEGATIVE, Urine Bilirubin NEGATIVE, Urine Urobilinogen 0.2, Urine Leukocyte Esterase NEGATIVE, Urine RBC (Auto) NEGATIVE, Urine RBC NONE, Urine WBC NONE, Urine Squamous Epithelial Cells 0-2, Urine Crystals NONE, Urine Bacteria TRACE, Urine Casts NONE, Urine Mucus NEGATIVE, Urine Culture Indicated NO 04/07/22 05:25: Triglycerides Level 117, Cholesterol Level 180, LDL Cholesterol Direct 102, VLDL Cholesterol 23, HDL Cholesterol 61H Conclusion/Plan This is a 66 year old female with a history of hypertension and optic migraine who presented to the emergency room with confusion. Her confusion resolved after she arrived to the emergency room and she then developed a headache. Her NIH stroke scale was 0. A CT angiogram of head and neck was negative. Her blood pressure was mildly elevated. It was felt that she should be monitored overnight for neurochecks and echocardiogram for the morning. Working diagnosis was TIA vs neurological/complex migraine. She was admitted to the medical floor and underwent neurochecks. She had no further neurological deficits or memory issues. She did have ongoing headache into the day of discharge so she was given IV toradol with zofran. She underwent and echocardiogram prior to discharge and understands that we will go over these results at her follow up. We discussed that this is likely a complex/neurological migraine with her history of optic migraine and migraines and the fact that her confusion was short lived and resolved and she had the onset of headache. She has tried numerous preventative migraine medications but has either had side effects to them or they were ineffective. She will resume propranolol on discharge and we will start emgality. We also discussed referral to neurology. She will follow up in my office in 2 weeks. She will continue on low dose aspirin 81mg daily. JOSE ANGEL TRAN DO Apr 07, 2022 17:06
== END 2022-04-07 15:10 | disposition home or self-care (01) ==
LOC: EDUNIT# 19:41 → ER 19:45 → 4TH 21:35
PROVIDERS: ADMIT Family Medicine; ATTEND Family Medicine
DX: G43.909 Migraine, unspecified, not intractable, without status migrainosus (principal); I10 Essential (primary) hypertension; F32.A Depression, unspecified; F41.9 Anxiety disorder, unspecified
CPT/HCPCS: 70496; 70498; 71045; 80053; 80061; 81000; 82947; 84484; 85025; 85379; 85610; 85730; 93005; 93041; 96375; 99284; C8929; G0378; 36415; 93306

== ENCOUNTER → 2022-08-05 | Outpatient (CLI) | payer MEDICARE, OTHER ==
[~2022-08-05] MED LIST changes: +AMIT25TA9; +ASPI-1238 PO; +BUSP15TA60; +CLOB15CR2; +ESTR42.511; +GALC120P SQ; +LEVO50TA6; +PROP40TA5; +ROSU5TAB13; +SERT-414; +SPIR25TA5
[2022-08-05 09:39] LABS: HEMATOCRIT 42 % (35-52); HEMOGLOBIN 14.2 g/dL (11.5-16.0); MEAN CORPUSCULAR HEMOGLOBIN 31 pg (25-34); MEAN CORPUSCULAR HGB CONC 34 g/dL (32-36); MEAN CORPUSCULAR VOLUME 92 fL (80-99); MEAN PLATELET VOLUME 9.4 fL (9.0-12.2); PLATELET COUNT 159 10^3/uL (130-400); WHITE BLOOD COUNT 5.5 10^3/uL (4.3-11.0)
[2022-08-05 09:53] LABS: CALCIUM 9.4 MG/DL (8.5-10.1)
[2022-08-05 09:57] LABS: CREATININE SERUM 0.81 MG/DL (0.60-1.30)
== END ==
LOC: CARD 09:16
PROVIDERS: ATTEND Obstetrics & Gynecology Female Pelvic Medicine and Reconstructive Surgery
DX: Z01.810 Encounter for preprocedural cardiovascular examination (principal); Z01.812 Encounter for preprocedural laboratory examination
CPT/HCPCS: 36415; 80048; 85027; 93005

== ENCOUNTER → 2022-09-15 | Outpatient (CLI) | payer MEDICARE, OTHER ==
--- NOTE | 2022-09-15 16:45 | Diagnostic Imaging Report ---
INDICATION: 66-year-old asymptomatic postmenopausal female COMPARISON: None available FINDINGS: LT Hip Neck: [BMD (g/cm2): 0.611] [T-Score: -3.1] [Z-Score: -1.8] LT Hip Total: [BMD (g/cm2):0.660] [T-Score:-2.8] [Z-Score: -1.8] [BMD Previous: 0.740] [BMD % Change: -10.8] RT Hip Neck: [BMD (g/cm2):0.599] [T-Score:-3.2] [Z-Score:-1.9] RT Hip Total: [BMD (g/cm2):0.684] [T-score:-2.6] [Z-Score:-1.6] [BMD Previous:0.771] [BMD % Change:-11.3] *Indicates significant change from prior examination based on 95% confidence level. World Health Organization criteria for BMD interpretation classify patients as Normal (T-score at or above -1.0), Osteopenic (T-score between -1.0 and -2.5) or Osteoporotic (T-score at or below -2.5). LIMITATIONS AND MODIFICATION: Lumbar spine assessment not utilized due to instrumented fusion. FRACTURE RISK (FRAX SCORE): Not applicable. IMPRESSION: 1. Osteoporosis. 2. Baseline examination. 3. See below National Osteoporosis Foundation guidelines on when to potentially initiate pharmacologic therapy. Based on the National Osteoporosis Foundation Guidelines, pharmacologic treatment should be initiated in any of the following, unless clinical conditions suggest otherwise: * Any patient with prior fragility fracture of the hip or vertebrae. A spine fracture indicates 5X risk for subsequent spine fracture and 2X risk for subsequent hip fracture. * Osteoporosis (T-score <-2.5). * Postmenopausal women and men age 50 and older with low bone mass/osteopenia (T-score between -1.0 and -2.5) by DXA and 10-year major osteoporotic fracture greater than 20% or a 10-year probability of hip fracture greater than 3%. These fracture risks are supplied above in the FRAX score, if applicable. * Clinician judgement and/or patient preferences may indicate treatment for people with 10-year fracture probabilities above or below these levels. Dictated by: Dictated on workstation # [id number]
== END ==
LOC: RAD 09:31
PROVIDERS: ATTEND Family Medicine
DX: M81.0 Age-related osteoporosis without current pathological fracture (principal); M85.80 Other specified disorders of bone density and structure, unspecified site; Z78.0 Asymptomatic menopausal state
CPT/HCPCS: 77080

== ENCOUNTER 2023-03-10 08:30 | Outpatient (RCR) | payer MEDICARE, OTHER | END 2023-03-11 | disposition home or self-care (01) | PROVIDERS: ATTEND Family Medicine | DX: M54.50 Low back pain, unspecified (principal); M54.6 Pain in thoracic spine ==

== ENCOUNTER 2023-05-02 22:19 | Emergency (ER) | payer MEDICARE, OTHER ==
[~2023-05-02] VITALS: Ht 152 cm; Wt 80.7 kg
[2023-05-02] MEDS ORDERED: ACETAMINOPHEN 500 MG TABLET PO PRN (22:45)
[2023-05-02] MEDS ORDERED: CEFEPIME INJECTION 1,000 MG in NS (IVPB) 50 ML 50 ML IV ONE (22:45)
[2023-05-02] MEDS ORDERED: LACTATED RINGERS 1,000 ML 1,000 ML IV ONE (22:45)
[2023-05-02 22:58] LABS: BASOPHILS % (AUTO) 0 % (0-10); EOSINOPHILS # (AUTO) 0.1 10^3/uL (0.0-0.3); EOSINOPHILS % (AUTO) 0 % (0-10); HEMATOCRIT 38 % (35-52); HEMOGLOBIN 13.2 g/dL (11.5-16.0); LYMPHOCYTES # (AUTO) 0.4 10^3/uL (1.0-4.0); LYMPHOCYTES % (AUTO) 3 % (12-44); MEAN CORPUSCULAR HEMOGLOBIN 32 pg (25-34); MEAN CORPUSCULAR HGB CONC 35 g/dL (32-36); MEAN CORPUSCULAR VOLUME 92 fL (80-99); MEAN PLATELET VOLUME 9.7 fL (9.0-12.2); MONOCYTES # (AUTO) 0.5 10^3/uL (0.0-1.0); MONOCYTES % (AUTO) 4 % (0-12); NEUTROPHILS # (AUTO) 12.1 10^3/uL (1.8-7.8); NEUTROPHILS % (AUTO) 92 % (42-75); PLATELET COUNT 137 10^3/uL (130-400); WHITE BLOOD COUNT 13.2 10^3/uL (4.3-11.0)
--- NOTE | 2023-05-02 23:02 | ED General ---
General Chief Complaint: Post OP Complications/Pain Stated Complaint: POST OP BACK INCISION RED/SWELLING - CHILLS- FEVER Nursing Triage Note: bladder stimulator placed 04/08/23 reports increased redness, fever/chills Source of Information: Patient (LIMITED HISTORIAN), Spouse (JELLY DICKERSON [place]) History of Present Illness Date Seen by Provider: May 02, 2023 Time Seen by Provider: 22:28 Initial Comments PT ARRIVES VIA POV FROM HOME WITH PT STATES SHE HAD SURGERY 3 WEEKS AGO 04/08/23 AT [facility] BY DR. ARROYO--HAD A BLADDER STIMULATOR PLACED PT STATES SHE HAS HAD INCREASED REDNESS AND PAIN TO THE AREA, AND IS NOW HAVING SUBJECTIVE FEVER AND CHILLS SHE HAD POST OP CHECK 2 WEEKS AGO, SHE HAS NOT ATTEMPTED TO CONTACT HER SURGEON ABOUT THIS COMPLAINT NO NAUSEA/VOMITING/DIARRHEA NO ABDOMINAL PAIN NO COUGH/CONGESTION NO SHORTNESS OF BREATH HAS ONGOING URINARY URGENCY AND INCONTINENCE, BUT NO PAIN ON URINATION--SHE STATES THAT HER SYMPTOMS OF URGENCY AND INCONTINENCE HAVE IMPROVED SINCE SURGERY NO PARESTHESIAS OR MOTOR DEFICITS HAS NOT TAKEN ANYTHING FOR SYMPTOMS PT IS NOT DIABETIC MUCH LATER, PT STATES SHE DID GET FLU SHOT ON Wednesday04/29/23 PCP: DR. CHI (JELLY DICKERSON DO) Allergies and Home Medications Allergies Coded Allergies: Sulfa (Sulfonamide Antibiotics) (Unverified Allergy, Unknown, 11/23/16) amoxicillin (Unverified Allergy, Unknown, 11/23/16) sucralfate (Unverified Allergy, Unknown, 11/23/16) Uncoded Allergies: SULFA (Allergy, Unknown, 07/31/10) Patient Home Medication List Home Medication List Reviewed: Yes (GENESIS PHILLIPS DO) Aspirin (Aspirin EC) 81 Mg Tablet., 81 MG PO DAILY Prescribed by: JOSE ANGEL CHI on 04/07/22 1253 Budesonide/Formoterol Fumarate (Symbicort Inhaler 160/4.5 Mcg) 10.2 Gm Hfa.aer.ad, 10.2 GM IH, (Reported) Entered as Reported by: SHAE NEFF on 03/12/10 153 Buspirone HCl (Buspirone HCl) 15 Mg Tablet, (Reported) Entered as Reported by: JORGE LUIS LEES on 04/06/221954 Clobetasol Propionate (Clobetasol Propionate) 0.05 % Cream..g., (Reported) Entered as Reported by: JORGE LUIS LEES on 04/06/221954 Estradiol (Estradiol) 0.01 % Cream.appl, (Reported) Entered as Reported by: JORGE LUIS LEES on 04/06/221954 Fexofenadine Hcl (Monae) 180 Mg Tablet, 1 TAB PO DAILY, (Reported) Entered as Reported by: SHAE NEFF on 03/12/10 153 Fluticasone Propionate (Flonase 0.05% Nasal Peacham) 16 Gm Peacham, 2 SPRAYS NSEACH DAILY, (Reported) Entered as Reported by: ABA MIRAMONTES on 03/12/10 103 Galcanezumab-Gnlm (Emgality) 120 Mg/Ml Pen.injctr, 240 MG SQ ONCE Prescribed by: JOSE ANGEL CHI on 04/07/22 125 Levothyroxine Sodium (Levothyroxine Sodium) 50 Mcg Tablet, (Reported) Entered as Reported by: JORGE LUIS LEES on 04/06/221954 Montelukast Sodium (Singulair 10 Mg) 10 Mg Tablet, 10 MG PO DAILY, (Reported) Entered as Reported by: ABA PYLE on 05/13/13 1325 Propranolol HCl (Propranolol HCl) 40 Mg Tablet, (Reported) Entered as Reported by: JORGE LUIS LEES on 04/06/221954 Rosuvastatin Calcium (Rosuvastatin Calcium) 5 Mg Tablet, (Reported) Entered as Reported by: JORGE LUIS LEES on 04/06/221954 Sertraline Hcl (Zoloft) 100 Mg Tab, 200 MG PO HS, (Reported) Entered as Reported by: ABA MIRAMONTES on 03/12/10 103 Spironolactone (Aldactone) 25 Mg Tab, 25 MG PO DAILY, (Reported) Entered as Reported by: ABA MIRAMONTES on 03/12/10 103 Review of Systems Review of Systems Constitutional: see HPI, chills, fever EENTM: no symptoms reported Respiratory: no symptoms reported Cardiovascular: no symptoms reported Gastrointestinal: no symptoms reported Genitourinary: see HPI Musculoskeletal: see HPI Skin: see HPI Psychiatric/Neurological: No Symptoms Reported (JELLY DICKERSON DO) Past Mjiocek-Jzmcsb-Mnpyzn Hx Patient Social History Tobacco Use?: No Substance use?: No Alcohol Use?: No Pt feels they are or have been: No (JELLY DICKERSON DO) Immunizations Up To Date Tetanus Booster (TDap): More than 5yrs First/Initial COVID19 Vaccinat: x4 Second COVID19 Vaccination Isacc: x4 Third COVID19 Vaccination Date: x4 (JELLY DICKERSON DO) Past Medical History Surgery/Hospitalization HX: tia, hypothryoidism, hld, spinal sx, bladder stimulator. 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 Sexually Transmitted Disease: No Genitourinary: Yes (URINARY INCONTINENCE, URGENCY/FREQUENCY) Gastrointestinal: Yes (S/P ANIA AND APPY) Gastroesophageal Reflux, Ulcer, Irritable Bowel Musculoskeletal: Yes (CHRONIC NECK PAIN; LEFT ELBOW AND WRIST FX) Chronic Back Pain Endocrine: Yes (OBESITY) Hypothyroidsim HEENT: Yes (NOSE SURGERY) Cancer: No Psychosocial: Yes Anxiety, Depression Integumentary: No Blood Disorders: No (JELLY DICKERSON DO) Family Medical History SOCIAL HISTORY: -NO SMOKING -NO ETOH -NO DRUG USE PAST SURGICAL HISTORY: -NASAL SURGERY FOR DEVIATED SEPTUM -CHOLECYSTECTOMY 03/2010 -APPENDECTOMY 03/2010 -HYSTERECTOMY / OVARIES INTACT--AORTA INJURED DURING SURGERY -LEFT WRIST FX/ORIF -C-SPINE SURGERY -L-SPINE SURGERY -BLADDER STIMULATOR 04/08/[address] ARROYO IN [place], [place] (JELLY DICKERSON DO) Physical Exam Vital Signs Vital Signs - First Documented 05/02/23 22:26 Temp 38.7 Pulse 116 Resp 18 B/P (MAP) 141/79 (99) Pulse Ox 95 O2 Delivery Room Air (GENESIS PHILLIPS DO) Vital Signs Capillary Refill : Less Than 3 Seconds (JELLY DICKERSON DO) Height, Weight, BMI Height: 5'2.00" Weight: 165lbs. 0.0oz. 74.959455gq; 34.00 BMI Method:Stated General Appearance: No Apparent Distress, WD/WN, Obese HEENT: PERRL/EOMI Neck: Normal Inspection Respiratory: Normal Breath Sounds, No Accessory Muscle Use, No Respiratory Distress Cardiovascular: No Edema, No Murmur, Normal Peripheral Pulses, Tachycardia Gastrointestinal: Non Tender, Soft Back: No CVA Tenderness, Other (SACRAL AREA WITH APPROXIMATELY 3-4 MM ROUND SCABBED AREA WITH MILD SURROUNDING ERYTHEMA 5 X 5 CM DIAMETER. NO FLUCTUANCE, NO DRAINAGE, NO STREAKS. LEFT BUTTOCK AREA WITH HEALED/INTACT INCISION WITH SURROUNDING 7 X 14 CM AREA OF ERYTHEMA, WARMTH, INDURATION. NO FLUCTUANCE, NO DRAINAGE. NO STREAKS. ) Extremity: Normal Capillary Refill, Normal Range of Motion, Non Tender, No Calf Tenderness Neurologic/Psychiatric: Alert, Oriented x3, No Motor/Sensory Deficits, cost specialist II- XII Norm as Tested Skin: Normal Color, Warm/Dry, Other ( ABOVE) (TUAN,JELLY K DO) Focused Exam Sepsis Stage: Sepsis Possible Source: Skin/Soft Tissue (TUAN,JELLY K DO) Lactate Level 05/02/23 22:50: Lactic Acid Level 0.68 (PHILLIPSSAMMYGENESIS L DO) Time of Focused Exam: 23:55 Respiratory: Normal Breath Sounds, No Accessory Muscle Use, No Respiratory Distress Cardiovascular: Regular Rate, Rhythm Capillary Refill: Less Than 3 Seconds Skin: normal color, warm/dry (TUAN,JELLY K DO) Lactic Acid Level Laboratory Tests Test 05/02/23 22:50 Lactic Acid Level 0.68 MMOL/L (0.50-2.00) (PHILLIPSGENESIS L DO) Within 3hrs of presentation: Admin fluids, Admin ABX, Blood cultures prior to ABX's, Focus exam, Lactate level (TUAN,JELLY K DO) Progress/Results/Core Measures Suspected Sepsis SIRS Temperature: Pulse: 116 Respiratory Rate: 18 Laboratory Tests 05/02/23 22:50: White Blood Count 13.2H Blood Pressure 141 /79 Mean: 99 05/02/23 22:50: Lactic Acid Level 0.68 Laboratory Tests 05/02/23 22:50: Creatinine 1.03, INR Comment 0.9, Platelet Count 137, Total Bilirubin 0.4 (TUAN,JELLY K DO) Results/Orders Lab Results Laboratory Tests Test 05/02/23 22:50 05/03/23 00:47 Range/Units White Blood Count 13.2 H 4.3-11.0 10^3/uL Red Blood Count 4.15 3.80-5.11 10^6/uL Hemoglobin 13.2 11.5-16.0 g/dL Hematocrit 38 35-52 % Mean Corpuscular Volume 92 80-99 fL Mean Corpuscular Hemoglobin 32 25-34 pg Mean Corpuscular Hemoglobin Concent 35 32-36 g/dL Red Cell Distribution Width 13.5 10.0-14.5 % Platelet Count 137 130-400 10^3/uL Mean Platelet Volume 9.7 9.0-12.2 fL Immature Granulocyte % (Auto) 1 % Neutrophils (%) (Auto) 92 H 42-75 % Lymphocytes (%) (Auto) 3 L 12-44 % Monocytes (%) (Auto) 4 0-12 % Eosinophils (%) (Auto) 0 0-10 % Basophils (%) (Auto) 0 0-10 % Neutrophils # (Auto) 12.1 H 1.8-7.8 10^3/uL Lymphocytes # (Auto) 0.4 L 1.0-4.0 10^3/uL Monocytes # (Auto) 0.5 0.0-1.0 10^3/uL Eosinophils # (Auto) 0.1 0.0-0.3 10^3/uL Basophils # (Auto) 0.0 0.0-0.1 10^3/uL Immature Granulocyte # (Auto) 0.1 0.0-0.1 10^3/uL Neutrophils % (Manual) 95 % Lymphocytes % (Manual) 3 % Monocytes % (Manual) 2 % Platelet Estimate ADEQUATE Blood Morphology Comment OK Erythrocyte Sedimentation Rate 12 0-30 MM/HR Prothrombin Time 12.8 12.2-14.7 SEC INR Comment 0.9 0.8-1.4 Activated Partial Thromboplast Time 24 24-35 SEC Sodium Level 137 135-145 MMOL/L Potassium Level 3.4 L 3.6-5.0 MMOL/L Chloride Level 109 H 98-107 MMOL/L Carbon Dioxide Level 18 L 21-32 MMOL/L Anion Gap 10 5-14 MMOL/L Blood Urea Nitrogen 22 H 7-18 MG/DL Creatinine 1.03 0.60-1.30 MG/DL Estimat Glomerular Filtration Rate 59 BUN/Creatinine Ratio 21 Glucose Level 104 70-105 MG/DL Lactic Acid Level 0.68 0.50-2.00 MMOL/L Calcium Level 9.0 8.5-10.1 MG/DL Corrected Calcium 8.9 8.5-10.1 MG/DL Magnesium Level 1.7 1.6-2.4 MG/DL Total Bilirubin 0.4 0.1-1.0 MG/DL Aspartate Amino Transf (AST/SGOT) 30 5-34 U/L Alanine Aminotransferase (ALT/SGPT) 28 0-55 U/L Alkaline Phosphatase 83 40-136 U/L C-Reactive Protein High Sensitivity 1.51 H 0.00-0.50 MG/DL Total Protein 6.7 6.4-8.2 GM/DL Albumin 4.1 3.2-4.5 GM/DL Influenza Type A (RT-PCR) Not Detected Not Detecte Influenza Type B (RT-PCR) Not Detected Not Detecte SARS-CoV-2 RNA (RT-PCR) Not Detected Not Detecte Urine Color YELLOW Urine Clarity CLEAR Urine pH 5.0 5-9 Urine Specific [place] <=1.005 1.016-1.022 Urine Protein NEGATIVE NEGATIVE Urine Glucose (UA) NEGATIVE NEGATIVE Urine Ketones NEGATIVE NEGATIVE Urine Nitrite NEGATIVE NEGATIVE Urine Bilirubin NEGATIVE NEGATIVE Urine Urobilinogen 0.2 < = 1.0 MG/DL Urine Leukocyte Esterase NEGATIVE NEGATIVE Urine RBC (Auto) NEGATIVE NEGATIVE Urine RBC NONE /HPF Urine WBC 0-2 /HPF Urine Squamous Epithelial Cells 0-2 /HPF Urine Crystals PRESENT H /LPF Urine Amorphous Sediment FEW YARELIS URATES H /LPF Urine Bacteria NEGATIVE /HPF Urine Casts NONE /LPF Urine Mucus NEGATIVE /LPF Urine Culture Indicated CULTURE PENDING (GENESIS PHILLIPS DO) My Orders Orders - GENESIS PHILLIPS DO Cefepime Injection (Cefepime Injection) (05/03/23 06:45) (GENESIS PHILLIPS DO) Medications Given in ED Current Medications Medications Dose Ordered Sig/Pura Route Start Time Stop Time Status Last Admin Dose Admin Cefepime HCl 1000 mg/Sodium Chloride 50 ml @ 100 mls/hr ONCE ONCE IV 05/03/23 06:45 05/03/23 07:14 DC 05/03/23 06:46 100 MLS/HR Ibuprofen 800 mg ONCE ONCE PO 05/03/23 02:15 05/03/23 02:16 DC 05/03/23 02:17 800 MG Lactated Ringer's 1,000 ml @ 0 mls/hr Q0M ONCE IV 05/03/23 02:15 05/03/23 02:16 DC 05/03/23 02:17 0 MLS/HR Lactated Ringer's 1,000 ml @ 0 mls/hr Q0M ONCE IV 05/03/23 03:45 05/03/23 03:46 DC 05/03/23 05:44 0 MLS/HR (GENESIS PHILLIPS DO) Vital Signs/I&O 05/02/23 05/02/23 05/03/23 22:26 22:50 02:17 Temp 38.7 38.7 38.3 Pulse 116 Resp 18 B/P (MAP) 141/79 (99) Pulse Ox 95 O2 Delivery Room Air 05/03/23 00:00 Intake Total 1050 ml Balance 1050 ml (GENESIS PHILLIPS DO) Vital Signs/I&O Capillary Refill : Less Than 3 Seconds (JELLY DICKERSON DO) Blood Pressure Mean: 99 Progress Note : Progress Note VITALS ON ARRIVAL: TEMP 38.7=101.6, HR 116, RR 18, BP 141/79, O2 SAT 95% ON ROOM AIR SEPSIS PROTOCOL INITIATED GIVEN: -IV FLUIDS -CEFEPIME -FENTANYL -TYLENOL AND MOTRIN LABS: -CBC WITH WBC 13.2, OTHERWISE NORMAL -CMP WITH NA 137, K 3.4, BUN 22, CR 1.03 -MG NORMAL -SED RATE 13 -CRP 1.51 -LACTIC ACID 1.68 -COVID/FLU NEGATIVE -UA CLEAR CT SCAN--NO FOCAL FLUID COLLECTION, NO ABSCESS OR SUB Q AIR; THERE IS MILD THICKENING OF OVERLYING SKIN. CXR--UNREMARKABLE, PENDING RADIOLOGIST REVIEW TEMP AND HR DOWN WITH IV FLUIDS AND TYLENOL AND MOTRIN PAIN IMPROVED WITH FENTANYL (JELLY DICKERSON DO) Diagnostic Imaging Comments CT ABDOMEN/PELVIS--PER [facility] VIA FAX AT 0028 -NO FOCAL FLUID COLLECTION OR ABSCESS, OR SUB Q AIR -MILD THICKENING OF OVERLYING SKIN OVER ELECTRONIC DEVICE OF LEFT POSTERIOR PELVIS AREA CXR--PER RADIOLOGIST REPORT AT 0549 FINDINGS: Heart size is normal. The lungs are clear. There is no pleural effusion or pneumothorax. The mediastinum is unremarkable. Calcified granuloma in the right lung base. IMPRESSION: No acute cardiopulmonary abnormality Reviewed: Reviewed by Me (JELLY DICKERSON DO) Departure Communication (Admissions) 0143--CALLED DR. CANDELARIO, HOSPITALIST FOR DR. CHI'S PATIENTS. SHE WILL NOT ACCEPT PT, ADVISES TO TRANSFER TO PT'S SURGEON IN [facility] 0145--CALLED [facility]--THEY HAVE NO RECORD OF THIS PATIENT. AFTER DISCUSSING FURTHER WITH PT AND , INITIALLY THEY DID NOT KNOW WHAT HOSPITAL / FACILITY SHE HAD SURGERY AT. THEN MUCH LATER, THEY REPORT THAT SURGERY WAS DONE AT [facility] IN [place]. MULTIPLE ATTEMPTS TO CONTACT ANYONE AT ANY OF THE ASSOCIATED CLINICS, HOSPITALS, ETC WERE UNSUCCESSFUL--AFFILIATED WITH MULTIPLE [facility] HOSPITALS AND OUTPATIENT SURGICAL CENTERS. 0159--CALLED DR. ARROYO'S OFFICE NUMBER [phone], MESSAGE LEFT ON MACHINE TO HAVE ON-CALL PHYSICIAN CALL HERE. 0239--CALLED A DIFFERENT NUMBER FOR DR. ARROYO--DIFFERENT CLINIC LOCATIONS 0240--CALLED [facility] TRANSFER GANADO [phone] TO ASSIST WITH GETTING PT TRANSFERRED TO APPROPRIATE FACILITY. 0300--SPOKE WITH DR. MORGAN, ER PHYSICIAN AT [facility], HE ADVISES TO CONTINUE TO ATTEMPT TO CONTACT DR. ARROYO OR HEAT TREAT FURNACE OPERATOR FOR HIM, BEFORE ACCEPTING THE PATIENT FOR TRANSFER, THEY CANNOT VERIFY WHICH HOSPITAL DR. ARROYO IS AFFILIATED WITH. 0310--[facility] IS CONTINUING TO ATTEMPT TO CONTACT DR. ARROYO OR HEAT TREAT FURNACE OPERATOR FOR HIM AND WILL CALL BACK WHEN THEY HAVE BEEN ABLE TO ACCOMPLISH THAT. 0451--RECEIVED A CALL BACK FROM [facility]. THEY HAVE CONTINUED TO ATTEMPT TO CONTACT DR. ARROYO OR DETERMINE WHICH HOSPITAL HE ADMITS PATIENTS TO. ( HE HAS PRIVILEGES AT [facility] FACILITIES, BUT HE DOES NOT TAKE CALL THERE OR DO SURGERY THERE OR ADMIT PATIENTS THERE). THEY HAVE DETERMINED THAT IT APPEARS THAT HE ADMITS PATIENTS TO [facility]. 0455--CALLED [facility] TRANSFER LINE [phone]. THEY HAVE VERIFIED THAT DR. ARROYO DOES ADMIT PATIENTS THERE AND DOES SURGERY THERE, AND HAS SURGERIES SCHEDULED THERE TODAY, IN FACT. THE ONLY CONTACT NUMBER THEY HAVE IS HIS GENERAL OFFICE NUMBER, WHICH I HAVE CALLED SEVERAL TIMES TONIGHT, HAS THE [facility] TRANSFER CENTER. THEY WILL ATTEMPT TO CONTACT HIM OR DR HEAT TREAT FURNACE OPERATOR FOR HIM AND WILL CALL BACK. 0536--[facility]SF[facility] CALLED BACK. THEY HAVE PAGED DR. ARROYO, BUT HAVE NOT RECEIVED A CALL BACK. THEY WILL CONTINUE TO ATTEMPT TO CONTACT HIM AND HAVE HIM CALL HERE. PT DOES NOT HAVE ANY AFTER HOURS EMERGENCY NUMBER FOR DR. ARROYO. 0600--CARE TURNED OVER TO DR. PHILLIPS AT SHIFT CHANGE. (JELLY DICKERSON DO) Impression Primary Impression: Sepsis Qualified Codes: A41.9 - Sepsis, unspecified organism Additional Impression: POST OP WOUND INFECTION OF LEFT BUTTOCK AND LOW BACK AREA Disposition: XFER SHT-TRM HOSP Condition: Stable Transfer Transfer Reason: Exceeds level of care (JELLY DICKERSON DO) Transfer Reason: Exceeds level of care Time Spoke to Accepting Phy: 08:10 Transfer Progress Notes pt accepted by Dr Causey, Dr Arroyo Transfer Facility: [facility] (GENESIS PHILLIPS DO) Departure-Patient Inst. Referrals: JOSE ANGEL CHI DO (PCP/Family) Primary Care Physician JELLY DICKERSON DO May 02, 2023 23:02 GENESIS PHILLIPS DO May 03, 2023 09:08
[2023-05-02 23:05] LABS: ALBUMIN 4.1 GM/DL (3.2-4.5); POTASSIUM 3.4 MMOL/L (3.6-5.0)
[2023-05-02 23:08] LABS: TOTAL PROTEIN 6.7 GM/DL (6.4-8.2)
[2023-05-02 23:09] LABS: BILIRUBIN,TOTAL 0.4 MG/DL (0.1-1.0)
[2023-05-02 23:11] LABS: CREATININE SERUM 1.03 MG/DL (0.60-1.30)
[2023-05-02 23:14] LABS: MAGNESIUM 1.7 MG/DL (1.6-2.4)
[2023-05-02 23:15] LABS: INR 0.9 (0.8-1.4); LYMPHOCYTES % (MANUAL) 3 %; MONOCYTES % (MANUAL) 2 %; NEUTROPHILS % (MANUAL) 95 %; PROTHROMBIN TIME PATIENT 12.8 SEC (12.2-14.7)
[2023-05-02 23:16] LABS: PLATELET ESTIMATE ADEQUATE; RBC MORPH OK
[2023-05-02] MEDS ORDERED: fentaNYL INJECTION 100 MCG/2 ML VIAL IVP ONE (23:30)
[2023-05-03] MEDS ORDERED: CATHETER FLUSH 10 ML SYR IV PRN
[2023-05-03] MEDS ORDERED: IOHEXOL 350 MG/ML 100 ML (OMNIPAQUE 350) VIAL IV ONE
[2023-05-03] MEDS ORDERED: NS 100 ML (IVPB) BAG IV ONE
[2023-05-03] MEDS ORDERED: HOLD METFORMIN - RECEIVED CONTRAST 20 ML VIAL IV SCH
[2023-05-03 01:02] LABS: AMORPHOUS SEDIMENT,UR FEW AMOR URATES /LPF; BACTERIA,URINE NEGATIVE /HPF; BILIRUBIN,URINE NEGATIVE (NEGATIVE); CLARITY,URINE CLEAR; COLOR,URINE YELLOW; GLUCOSE, URINE (UA) NEGATIVE (NEGATIVE); KETONES,URINE NEGATIVE (NEGATIVE); LEUKOCYTE ESTERASE ,URINE NEGATIVE (NEGATIVE); NITRITE,URINE NEGATIVE (NEGATIVE); PROTEIN,URINE NEGATIVE (NEGATIVE); SQUAMOUS EPITHELIAL CELL,UR 0-2 /HPF; WBC,URINE 0-2 /HPF
[2023-05-03] MEDS ORDERED: IBUPROFEN 800 MG TABLET PO ONE (02:15)
[2023-05-03] MEDS ORDERED: LACTATED RINGERS 1,000 ML 1,000 ML IV ONE ×2 (02:15→03:45)
--- NOTE | 2023-05-03 05:38 | Diagnostic Imaging Report ---
INDICATION: Fever. Comparison is made with prior examination of 04/06/2022. FINDINGS: Heart size is normal. The lungs are clear. There is no pleural effusion or pneumothorax. The mediastinum is unremarkable. Calcified granuloma in the right lung base. IMPRESSION: No acute cardiopulmonary abnormality Dictated by: Dictated on workstation # [id number]
[2023-05-03] MEDS ORDERED: CEFEPIME INJECTION 1,000 MG in NS (IVPB) 50 ML 50 ML IV ONE (06:45)
--- NOTE | 2023-05-03 07:08 | Diagnostic Imaging Report ---
PROCEDURE: CT abdomen and pelvis with contrast. TECHNIQUE: Multiple contiguous axial images were obtained through the abdomen and pelvis after administration of intravenous contrast. Auto Exposure Controls were utilized during the CT exam to meet ALARA standards for radiation dose reduction. All CT scans use one or more of the following dose optimizing techniques: automated exposure control, MA and/or KvP adjustment based on patient size and exam type or iterative reconstruction. INDICATION: Postop infection following bladder stimulator placement. FINDINGS: There is a calcified granuloma in the right lung base. The lung bases are otherwise clear. The liver is normal in size without focal lesions. Gallbladder surgically absent. No biliary duct dilatation. There is a cyst in the spleen. There is a small hiatal hernia. The pancreas is unremarkable. There is a 1.5 cm right adrenal nodule. Kidneys are normal. Aorta is nonaneurysmal. Bowel gas pattern is nonspecific. No free air. No ascites. No pelvic mass, adenopathy or free fluid. Bladder is normal. There are degenerative and postsurgical changes in the spine. There is an electronic device in the deep subcutaneous tissues along the posterior left pelvis. There is some overlying skin thickening however no abnormal fluid collection to suggest abscess. There is no subcutaneous emphysema. IMPRESSION: Small hiatal hernia. Splenic cyst. Electronic device within subcutaneous tissues of the left pelvis. There is mild overlying skin thickening however no abnormal fluid collection appreciated to suggest abscess. No subcutaneous air. Degenerative postsurgical changes in the spine. Dictated by: Dictated on workstation # [id number]
[2023-05-03 11:44] VITALS: BP 118/77
== END 2023-05-03 11:44 | disposition short-term general hospital (02) ==
LOC: EDUNIT# 22:19 → ER 22:21
DX: T81.44XA Sepsis following a procedure, initial encounter (principal); T81.49XA Infection following a procedure, other surgical site, initial encounter; E66.9 Obesity, unspecified; Z68.34 Body mass index [BMI] 34.0-34.9, adult; Z88.0 Allergy status to penicillin; Z88.2 Allergy status to sulfonamides; Z11.52 Encounter for screening for COVID-19
CPT/HCPCS: 36415; 71045; 74177; 80053; 81000; 83605; 83735; 85007; 85027; 85610; 85652; 85730; 86141; 87040; 87088; 87636; 96361; 96365; 96375; 96376